=== PATIENT | female | born 1965 | race Hispanic/Latino ===

== ENCOUNTER 2024-03-19 17:30 | Emergency (ER) | payer BC, SELFPAY ==
--- NOTE | ~2024-03-19 | XR_ITS ---
EXAM: XR foot RT min 3V DATE: 03/19/2024 18:08 HISTORY: R foot pain and swelling mid foot . COMPARISON: None available. FINDINGS: Normal mineralization. No fracture or dislocation. No lytic or blastic lesion. Mild hallux valgus and mild degenerative change at the first MTP joint. High arch. No erosion or periosteal mera ge. Soft tissues within normal limits. IMPRESSION: No acute osseous finding in the right foot. Reviewed, dictated and finalized at location K.
[2024-03-19 17:32] VITALS: BP 183/87; PULSE 75; RESP 20; TEMP 36.2; O2SAT 100
--- NOTE | 2024-03-19 17:56 | ED.GENADULT ---
HPI - General Adult General Chief complaint: Extremity Injury, Lower Stated complaint: R foot injury Time Seen by Provider: 03/19/24 17:55 Source: patient Mode of arrival: ambulatory Limitations: no limitations History of Present Illness HPI narrative: This is a 58-year-old female who presents to the ED with chief complaint of right foot pain x1 week. Reports that she was walking and doing her normal exercises at the gym a week ago which she 1st noticed a little bit of pain. She states that the pain has increased gradually and now there is some redness and swelling to the top of the foot. Denies fevers, chills, spreading redness, numbness, weakness or any further injury. Denies fall or trauma to the foot Related Data Allergies Allergy/AdvReac Type Severity Reaction Status Date / Time No Known Allergies Allergy Unverified 07/17/21 14:40 Review of Systems Review of Systems: All systems as dictated in [facility] Past Medical History Medical History (Updated 03/19/24 @ 18:35 by Tod Lan PA-C) Allergic rhinitis Graves disease Family History Family History Father Family history of heart disease in male family member before age 55 Patient's father is Family history of cardiovascular disease Family history of malignant neoplasm Mother Cerebrovascular accident Social History Social History Smoking status: Never smoker Second hand tobacco smoke exposure: No Alcohol intake: current Exam Narrative: GENERAL: Well-appearing, well-nourished, and in no acute distress. MSK: Right foot: Mild tenderness and mild swelling to the dorsum of the right foot, midfoot. No warmth. Minimal erythema. Left foot: Benign SKIN: Warm, dry, no rash. NEURO: Alert and oriented x4. No focal deficits. PSYCH: Normal mood and affect. Course Vital Signs Vital signs: Vital Signs Temperature 97.2 F L 03/19/24 17:32 Pulse Rate 75 03/19/24 17:32 Respiratory Rate 20 03/19/24 17:32 Blood Pressure 183/87 H 03/19/24 17:32 Pulse Oximetry 100 03/19/24 17:32 Temperature 97.2 F L 03/19/24 17:32 Pulse Rate 75 03/19/24 17:32 Respiratory Rate 20 03/19/24 17:32 Blood Pressure 183/87 H 03/19/24 17:32 Pulse Oximetry 100 03/19/24 17:32 Medical Decision Making MDM Narrative Medical decision making narrative: This is a 58-year-old female who presents to the ED with chief complaint of right foot pain after injury 1 week ago. Vitals are normal. Exam is showing mild right foot swelling and tenderness. No bruising. X-rays of the right foot are negative for any acute osseous findings. Symptoms and presentation most consistent with overuse injury. Discussed unclear etiology with the patient and that will be beneficial to trial anti-inflammatories for the next couple of weeks. Pt will be discharged in stable condition. Return precautions given and supportive measures discussed. Pt is understanding and agreeable with plan for discharge and follow-up with PCP. Vital Signs Vital Signs: Vital Signs Temperature 97.2 F L 03/19/24 17:32 Pulse Rate 75 03/19/24 17:32 Respiratory Rate 20 03/19/24 17:32 Blood Pressure 183/87 H 03/19/24 17:32 Pulse Oximetry 100 03/19/24 17:32 Temperature 97.2 F L 03/19/24 17:32 Pulse Rate 75 03/19/24 17:32 Respiratory Rate 20 03/19/24 17:32 Blood Pressure 183/87 H 03/19/24 17:32 Pulse Oximetry 100 03/19/24 17:32 Discharge Plan Discharge Clinical Impression: Acute pain of right foot Patient Disposition: Home, Self-Care Condition: Stable Instructions: Antibiotic Form Additional Instructions: Your exam and imaging today are reassuring. There is no obvious fracture. Please follow-up with PCP. Take anti-inflammatories for the next couple of weeks. Use the foot as tolerated. MA be
== END 2024-03-19 18:46 | disposition home or self-care (01) ==
LOC: ANHED 18:54
PROVIDERS: Emergency Provider Physician Assistant; PCP Physician Assistant
DX: S99.921A Unspecified injury of right foot, initial encounter (principal); E05.00 Thyrotoxicosis with diffuse goiter without thyrotoxic crisis or storm; X50.9XXA Other and unspecified overexertion or strenuous movements or postures, initial encounter
CPT/HCPCS: 73630; 99283